=== PATIENT | male | born 1960 | race Caucasian/White ===

== ENCOUNTER 2020-04-16 09:31 | Emergency (ER) | payer MEDICAID ==
[~2020-04-16] VITALS: Ht 170.2 cm; Wt 53.0 kg
[2020-04-16 09:42] VITALS: BP 100/67
== END 2020-04-16 10:04 | disposition home or self-care (01) ==
LOC: ER 09:32
DX: F10.129 Alcohol abuse with intoxication, unspecified (principal); R41.0 Disorientation, unspecified; Z56.0 Unemployment, unspecified; Z60.2 Problems related to living alone; Z88.5 Allergy status to narcotic agent; Y90.9 Presence of alcohol in blood, level not specified
CPT/HCPCS: 99284

== ENCOUNTER 2020-04-26 07:39 | Emergency (ER) | payer MEDICAID ==
[~2020-04-26] VITALS: Ht 170.2 cm; Wt 52.7 kg
[2020-04-26] MEDS ORDERED: thiamine 100mg tablet PO ONE (07:55)
[2020-04-26] MEDS ORDERED: folic acid 1mg tablet PO ONE (07:55)
--- NOTE | 2020-04-26 08:22 | NUR ---
Pt reports having been "in someplace where they gave me pain meds. I didn't like it so I got up and left." Based on pt's statements it was discovered pt was admitted to [facility] 04/03-04/15 and then seen here 04/16/2020 for ETOH r/t issues. Pt is trying to get home to [place]. He reports not having a ride or good familial relations where someone may pick him up.
--- NOTE | 2020-04-26 10:17 | NUR ---
[employer] paged in regards to pt having family in [place], but not knowing how to get ahold of them or where they live.
[2020-04-26 11:25] VITALS: BP 137/89
--- NOTE | 2020-04-26 11:26 | NUR ---
ATTEMPTED TO CALL THE PHONE NUMBER ON PT CHART IT IS THE NUMBER OF [facility]. CALLED [facility] THEY STATE PT WAS LAST THERE IN 2016 AND THEY HAVE NO CONTACTS FOR PT. CALLED [facility] GIVEN PHONE NUMBER [phone], CALLED NO ANSWER. INQUIRED WITH PT AGAIN IF HE HAS ANY PHONE NUMBERS OF ANY ONE WE CAN CALL FOR HIM HE STATES HE DOES NOT. PT STATES HE HAS NOT BEEN TO THE [facility] HERE IN [place] HE HAS BEEN LIVING ON "[place]" INFORMED DR RUIZ OF ABOVE INQUIRED IF HE FELT PT COULD BE DC VIA [facility] TO [facility]? DR RUIZ AGREEES WITH PLAN, [facility] CALLED WILL BE HERE [place] 45 MIN.
== END 2020-04-26 11:30 | disposition home or self-care (01) ==
LOC: ER 07:39
DX: D18.1 Lymphangioma, any site (principal); J45.909 Unspecified asthma, uncomplicated; Z60.2 Problems related to living alone; Z59.0 Homelessness; Z56.0 Unemployment, unspecified; Z88.5 Allergy status to narcotic agent
CPT/HCPCS: 70450; 99284